=== PATIENT | male | born 1960 | race African-American/Black ===

== ENCOUNTER 2021-07-31 07:17 | Emergency (ER) | payer BC ==
[~2021-07-31] VITALS: Ht 172.7 cm; Wt 74.8 kg
[2021-07-31 07:28] VITALS: BP 154/98
[2021-07-31] MEDS ORDERED: BIKTARVY 50-201 EACH PO (07:36)
[2021-07-31] MEDS ORDERED: MITIGARE0.6 MG PO (08:49)
== END 2021-07-31 09:26 | disposition home or self-care (01) ==
LOC: ER 07:17
DX: M10.071 Idiopathic gout, right ankle and foot (principal); M79.674 Pain in right toe(s); E78.5 Hyperlipidemia, unspecified; Z21 Asymptomatic human immunodeficiency virus [HIV] infection status; Z79.899 Other long term (current) drug therapy; Z88.1 Allergy status to other antibiotic agents